=== PATIENT | female | born 1965 | race Caucasian/White ===

== ENCOUNTER 2024-06-06 10:45 | Emergency (ER) | payer BC ==
[2024-06-06] MEDS ORDERED: NA CHLORIDE 0.9% 1,000 ML ONE (11:05)
[2024-06-06] MEDS ORDERED: ONDANSETRON 4 MG/2 ML VIAL ONE (11:05)
[2024-06-06 11:09] LABS: Absolute Eosinophils 0.1 K/uL (0-0.5); Absolute Monocytes 0.7 K/uL (0.1-1.3); Absolute Neutrophil 6.9 K/uL (1.8-8.0); Basophils % 0.4 % (0-1.3); Eosinophils % 0.9 % (0-4.4); Hematocrit 46.3 % (36.0-45.0); Hemoglobin 15.2 g/dL (12.0-15.0); Lymphocytes % 20.5 % (15.3-44.8); MCH 29.2 pg (27.0-35.0); MCHC 32.8 g/dL (32.0-36.0); MCV 88.8 fL (80-100); MPV 8.8 fL (7.6-11.3); Neutrophils % 71.2 % (41.7-73.7); Platelets 207 thou/uL (152-406); RBC Red Blood Cell Count 5.22 M/uL (3.86-4.86); Red Cell Distribution Width 14.2 % (12.1-15.2)
[2024-06-06 11:15] LABS: PT Prothrombin Time 10.2 SECONDS (9.4-12.5); PTT, Activated Partial Thromb 34.4 SECONDS (24.3-36.9); Protime INR 0.91
[2024-06-06 11:28] LABS: Albumin 4.1 g/dL (3.4-5.0); Albumin/Globulin Ratio 1.2 (1.1-1.8); Anion Gap 8.9 mEq/L (5.0-15.0); Bilirubin Direct 0.2 mg/dL (0-0.2); Bilirubin Indirect, Calculated 0.6 mg/dL (0.2-0.8); Bilirubin Total 0.8 mg/dL (0.2-1.0); Globulin 3.5 g/dL (2.3-3.5); Magnesium 1.8 mg/dL (1.6-2.4); Potassium 3.9 mEq/L (3.5-5.1); Protein, Total 7.6 g/dL (6.4-8.2); Troponin High Sensitivity 15.3 pg/mL (<58.9)
[2024-06-06 11:32] LABS: Specific Gravity 1.009 (1.005-1.030); Sqamous Epithelial <5 /HPF (None Seen); Urine Bacteria None Seen /HPF (<20); Urine Bilirubin NEGATIVE (Negative); Urine Blood Negative (Negative); Urine Clarity Turbid (Clear); Urine Color Light-Yellow (Yellow); Urine Culture Reflex Order NOT NEEDED; Urine Glucose NEGATIVE (Negative); Urine Ketones NEGATIVE (Negative); Urine Microscopic Reflex YN ORDER UMIC; Urine Mucus Slight /HPF (None Seen); Urine Nitrite NEGATIVE (Negative); Urine Protein NEGATIVE (Negative); Urine RBC None Seen /HPF (None Seen); Urine Urobilinogen Normal (Normal); Urine WBC <5 /HPF (<5); Urine pH 5.5 (5.0-7.0)
[2024-06-06] MEDS ORDERED: MAGNES/ALUMIN/SIMET 30ML UCUP ONE (11:33)
[2024-06-06] MEDS ORDERED: PROMETHAZINE INJ 25 MG/ML AMP ONE (11:33)
[2024-06-06] MEDS ORDERED: LIDOCAINE VISCOUS 2% 10ML ORAL SOLN ONE (11:34)
--- NOTE | 2024-06-06 11:56 | RAD REPORT ---
EXAM DESCRIPTION: CT - Head Brain Wo Cont - 06/06/2024 11:49 am CLINICAL HISTORY: syncope vs seizure Headache, drowsiness, seizure COMPARISON: Head angio dated 06/06/2024 TECHNIQUE: All CT scans are performed using dose optimization technique as appropriate and may inclu de automated exposure control or mA/KV adjustment according to patient size. FINDINGS: No intracranial hemorrhage, hydrocephalus or extra-axial fluid collection.Mild frontal atr ophy noted.No areas of brain edema or evidence of midline shift. The paranasal sinuses and mastoids are clear. The calvarium is intact. IMPRESSION: No acute intracranial abnormality.
--- NOTE | 2024-06-06 12:01 | RAD REPORT ---
EXAM DESCRIPTION: CT - Head angio - 06/06/2024 11:49 am CLINICAL HISTORY: syncope vs seizure Headache, drowsiness COMPARISON: Head Brain Wo Cont dated 06/06/2024 TECHNIQUE: CT angiography of the head was performed with MIPs. All CT scans are performed using dose optimization technique as appropriate and may include automated exposure control or mA/KV adjustment according to patient size. FINDINGS: No evidence of large vessel occlusion. No evidence of aneurysm is detected. No flow-limiti ng stenosis or vascular malformation identified. Antegrade flow is seen in the vertebral arteries. The vertebral arteries are codominant. The visualized dural venous sinuses are patent. IMPRESSION: No significant flow abnormality is detected.
--- NOTE | 2024-06-06 12:06 | RAD REPORT ---
EXAM DESCRIPTION: CT - Neck Angio - 06/06/2024 11:49 am CLINICAL HISTORY: syncope vs seizure Headache, drowsiness COMPARISON: No comparisons TECHNIQUE: CT angiography of the neck vessels was performed with MIPs. All CT scans are performed using dose optimization technique as appropriate and may include automated exposure control or mA/KV adjustment according to patient size. FINDINGS: A left aortic arch is identified with bovine configuration of the great vessels. No significant flow abnormality is seen of the common carotid bilaterally. Minimal soft plaque right carotid bulb. No significant carotid stenosis seen bilaterally. Normal flow is seen within both vertebral arteries. IMPRESSION: No significant flow abnormality of the neck vessels is identified. NASCET criteria used. Mild 0-49% stenosis Moderate 50-69% stenosis Severe 70-99% stenosis
--- NOTE | 2024-06-06 12:07 | RAD REPORT ---
EXAM DESCRIPTION: RAD - Chest Single View - 06/06/2024 11:54 am CLINICAL HISTORY: syncope vs seizure Chest pain. COMPARISON: No comparisons FINDINGS: Portable technique limits examination quality. Mild subsegmental atelectasis is present in the right lung base with elevated right hemidiaphragm. No focal consolidation to indicate pneumonia. The heart is upper limit normal in size. No displaced fra ctures.
--- NOTE | 2024-06-06 13:51 | RAD REPORT ---
EXAM DESCRIPTION: USExtremity Venous Uni Ltd06/06/2024 1:31 pm CLINICAL HISTORY: Right leg pain COMPARISON: None. FINDINGS: Right common femoral, superficial femoral, greater saphenous, popliteal and right posterio r tibial veins are compressible and demonstrate augmentation. Doppler demonstrates good flow. Grayscale, color and spectral analysis performed on all vessels IMPRESSION: No evidence of deep venous thrombosis involving the right lower extremity.
--- NOTE | 2024-06-06 14:21 | EDPHYS ---
Physician Documentation [facility] Name: Holly Sandy Age: 59 yrs Sex: Female : 1965 Arrival Date: 06/06/2024 Time: 10:45 Bed 8 Private MD: ED Physician Jalil Whitt HPI: 06/06 12:18 This 59 yrs old Female presents to ER via EMS with complaints of Possible rn syncope/possible seizure. 12:18 The patient has experienced syncope. Onset: The symptoms/episode began/occurred just rn prior to arrival. Duration: This was a single episode. Associated injury: The patient did not suffer any apparent associated injury. Current symptoms: headache. The patient has not experienced similar symptoms in the past. Patient reports had just finished drinking 2 cups of coffee, was on the phone with her friend, does not recall what happened after that. Friend reported that she was not answering on the line when spoken to. Patient states unknown amount of time that she lost, but when ambulance or police arrived she was seen walking out of her bedroom or bathroom. No injury. Was seated when it happened. [place] lightheaded prior to event. No preceding chest pain or shortness of breath. No focal neurological deficits. Reports very mild headache and nausea. No history of seizures. No history of head injury.. Historical: - Allergies: 10:54 Sulfa (Sulfonamide Antibiotics); aa5 - Home Meds: 10:54 None [Active]; aa5 - PMHx: 10:54 None; aa5 - PSHx: 10:54 Breast reduction; aa5 - Immunization history:: Adult Immunizations unknown. - Infectious Disease History:: Denies. - Social history:: Smoking status: Patient denies any tobacco usage or history of. - Family history:: not pertinent. - Hospitalizations: : No recent hospitalization is reported. ROS: 12:18 Constitutional: Negative for fever, chills, and weight loss, Eyes: Negative for injury, rn pain, redness, and discharge, Neck: Negative for injury, pain, and swelling, Cardiovascular: Negative for chest pain, palpitations, and edema, Respiratory: Negative for shortness of breath, cough, wheezing, and pleuritic chest pain, Abdomen/GI: Negative for abdominal pain,vomiting, diarrhea, and constipation, Back: Negative for injury and pain, MS/Extremity: Negative for injury and deformity, Skin: Negative for injury, rash, and discoloration, Neuro: Positive for headache, negative for focal weakness or numbness Exam: 12:18 Constitutional: This is a well developed, well nourished patient who is awake, alert, rn and in no acute distress. Head/Face: Normocephalic, atraumatic. Eyes: Pupils equal round and reactive to light, extra-ocular motions intact. Neck: No meningismus Cardiovascular: Regular rate and rhythm. No pulse deficits. Respiratory: No increased work of breathing, no retractions or nasal flaring. Abdomen/GI: Soft, non-tender MS/ Extremity: Pulses equal, no cyanosis. Neuro: Awake and alert, GCS 15, oriented to person, place, time, and situation. Cranial nerves II-XII grossly intact. Motor strength 5/5 in all extremities. Sensory grossly intact. Cerebellar exam normal. 14:22 ECG was reviewed by the Attending Physician. rn Vital Signs: 10:45 BP 158 / 84; Pulse 98; Resp 18 S; Temp 97.8(TE); Pulse Ox 99% on R/A; aa5 11:00 BP 130 / 89; Pulse 102; Resp 16 S; Pulse Ox 100% on R/A; aa5 11:30 BP 142 / 85; Pulse 90; Resp 18 S; Pulse Ox 99% on R/A; aa5 12:30 BP 140 / 79; Pulse 88; Resp 16 S; Pulse Ox 99% on R/A; aa5 14:00 BP 138 / 82; Pulse 85; Resp 18 S; Pulse Ox 99% on R/A; aa5 MDM: 10:49 Patient medically screened. rn 14:19 Differential Diagnosis: cardiac arrhythmia, idiopathic syncope, seizure, vasovagal rn episode. Data reviewed: vital signs, nurses notes, lab test result(s), EKG, radiologic studies, CT scan, ultrasound, and as a result, I will discharge patient. Counseling: I had a detailed discussion with the patient and/or guardian regarding the historical points, exam findings, and any diagnostic results supporting the discharge/admit diagnosis, lab results, radiology results, the need for outpatient follow up, to return to the emergency department if symptoms worsen or persist or if there are any questions or concerns that arise at home. Response to treatment: the patient's symptoms have markedly improved after treatment, the patient's symptoms have resolved after treatment, the patient's condition has returned to base line, the patient is now symptom free, and as a result, I will discharge patient. Special discussion: I discussed with the patient/guardian in detail that at this point there is no indication for admission to the hospital. It is understood, however, that if the symptoms persist or worsen the patient needs to return immediately for re-evaluation. Based on the history and exam findings, there is no indication for further emergent testing or inpatient evaluation. I discussed with the patient/guardian the need to see the neurologist for further evaluation of the symptoms. I discussed with the patient/guardian the need to see the primary care provider for further evaluation of the symptoms. ED course: No acute findings and workup. CT head and CT angio head and neck without acute findings. Ultrasound right lower extremity negative for DVT. Labs unremarkable. ECG without acute ischemia or arrhythmia. Will discharge home with PCP and neuro follow-up as still unclear whether syncope versus seizure. Will not medicate at this time.. 06/06 10:49 Order name: Basic Metabolic Panel; Complete Time: :06/06 10:49 Order name: CBC with Diff; Complete Time: 11:15 06/06 10:49 Order name: Hepatic Function; Complete Time: 06/06 10:49 Order name: Magnesium; Complete Time: 06/06 10:49 Order name: Protime (+inr); Complete Time: 11:06/06 10:49 Order name: Ptt, Activated; Complete Time: :06/06 10:49 Order name: Troponin High Sensitivity; Complete Time: 11:06/06 10:49 Order name: Urinalysis w/ reflexes; Complete Time: 11:06/06 10:50 Order name: CT Head Brain wo Cont 06/06 10:50 Order name: Chest Single View XRAY 06/06 10:50 Order name: Neck Angio CT 06/06 11:07 Order name: Head angio EDAL 06/06 12:21 Order name: Extremity Venous Uni Ltd US 06/06 10:50 Order name: EKG; Complete Time: 10:50 06/06 10:50 Order name: Cardiac monitoring; Complete Time: 10:58 06/06 10:50 Order name: EKG - Nurse/Tech; Complete Time: 11:04 rn 06/06 10:50 Order name: IV Saline Lock; Complete Time: rn 06/06 10:50 Order name: Labs collected and sent; Complete Time: rn 06/06 10:50 Order name: NPO; Complete Time: 58 rn 06/06 10:50 Order name: O2 Per Protocol; Complete Time: rn 06/06 10:50 Order name: O2 Sat Monitoring; Complete Time: :58 rn EC:22 Rate is 90 beats/min. Rhythm is regular. QRS Roberta is Normal. CO interval is normal. QRS rn interval is normal. QT interval is normal. No Q waves. T waves are Normal. No ST changes noted. Clinical impression: NSR w/ Non-specific ST/T Changes. Interpreted by me. Reviewed by me. Administered Medications: 11:11 Drug: NS 0.9% IV 1000 ml IV at 1000 ml once Route: IV; Rate: 1000 ml; Site: right aa5 antecubital; 13:00 Follow up: IV Status: Completed infusion; IV Intake: 1000ml aa5 11:11 Drug: Ondansetron IVP 4 mg IVP once; over 2 minutes Route: IVP; Site: right antecubital;aa5 11:16 Follow up: Response: No adverse reaction aa5 11:35 Drug: Promethazine IVP 6.25 mg IVP once Route: IVP; Site: right antecubital; aa5 11:38 Follow up: Response: No adverse reaction aa5 12:29 Drug: GI Cocktail without - (Maalox PO 30 ml, Lidocaine Mucous Membrane 2 % 15 aa5 ml) PO once Route: PO; 13:00 Follow up: Response: No adverse reaction aa5 Disposition Summary: 06/06/24 14:21 Discharge Ordered Notes: Location: Home rn Problem: new rn Symptoms: have improved rn Condition: Stable rn Diagnosis - Syncope rn Followup: rn - With: Private Physician - When: As needed - Reason: Recheck today's complaints, Re-evaluation by your physician Discharge Instructions: - Discharge Summary Sheet rn - Syncope rn Forms: - Medication Reconciliation Form rn - Antibiotic journeyman apprentice electricians - Prescription Opioid Use rn - Patient Portal Instructions rn - Leadership Thank You Letter rn Prescriptions: - ondansetron 4 mg Oral Tablet,disintegrating - take 1 tablet ORAL route every 8 hours As needed; 12 tablet; Refills: 0, rn Product Selection Permitted Signatures: Dispatcher [employer] Jalil Croft MD MD rn Calderon, Audri, SOFÍA RN aa5
--- NOTE | 2024-06-06 14:21 | ER ---
Nurse's Notes [facility] Name: Holly Sandy Age: 59 yrs Sex: Female : 1965 Arrival Date: 06/06/2024 Time: 10:45 Bed 8 Private MD: Diagnosis: Syncope Presentation: 06/06 10:45 Chief complaint: EMS states: received 911 from pt's friend who was on the phone with aa5 her when she suddenly " friend stopped talking but could hear her breathing", upon scene arrival pt was awake but confused. Pt states "I just remember feeling dizzy and woke up to me walking out of my bedroom because the oracle r12 developer were there but I don't remember how I got to my bedroom". Pt also reports loss of urine. Currently c/o nausea. 10:45 Coronavirus screen: nausea. Ebola Screen: Patient denies travel to an Ebola-affected [facility] area in the 21 days before illness onset. Initial Sepsis Screen: Does the patient meet any 2 criteria? No. Patient's initial sepsis screen is negative. Does the patient have a suspected source of infection? No. Patient's initial sepsis screen is negative. Risk Assessment: Do you want to hurt yourself or someone else? Patient reports no desire to harm self or others. Onset of symptoms was June 06, 2024. 10:45 Method Of Arrival: EMS: [facility] aa5 10:45 Acuity: SOLITARIO 2 aa5 10:45 Care prior to arrival: Medication(s) given: zofran 4 mg, IV initiated. Glucose check: aa5 80. Historical: - Allergies: 10:54 Sulfa (Sulfonamide Antibiotics); aa5 - Home Meds: 10:54 None [Active]; aa5 - PMHx: 10:54 None; aa5 - PSHx: 10:54 Breast reduction; aa5 - Immunization history:: Adult Immunizations unknown. - Infectious Disease History:: Denies. - Social history:: Smoking status: Patient denies any tobacco usage or history of. - Family history:: not pertinent. - Hospitalizations: : No recent hospitalization is reported. Screenin:45 [facility] ED Fall Risk Assessment (Adult) History of falling in the last 3 months, aa5 including since admission No falls in past 3 months (0 pts) Confusion or Disorientation No (0 pts) Intoxicated or Sedated No (0 pts) Impaired Gait No (0 pts) Mobility Assist Device Used No (0 pt) Altered Elimination No (0 pt) Score/Fall Risk Level 0 - 2 = Low Risk Oriented to surroundings, Maintained a safe environment, Educated pt \\T\\ family on fall prevention, incl call for assistance when getting out of bed. Abuse screen: Denies threats or abuse. Nutritional screening: No deficits noted. Tuberculosis screening: No symptoms or risk factors identified. Assessment: 10:45 General: Appears uncomfortable, Behavior is calm, cooperative. Pain: Complains of pain aa5 in forehead and right leg Quality of pain is described as headache as aching and right leg as cramping. Neuro: Level of Consciousness is awake, alert, obeys commands, Oriented to person, place, time, situation, Taproom Attendant are equal bilaterally Moves all extremities. Speech is normal, Facial symmetry appears normal, Pupils are PERRLA. Cardiovascular: Heart tones S1 S2 present Rhythm is regular. Respiratory: Airway is patent Respiratory effort is even, unlabored, Respiratory pattern is regular, symmetrical. GI: Abdomen is round non-distended, Bowel sounds present X 4 quads. Abd is soft and non tender X 4 quads. Reports nausea, Patient currently denies vomiting. : Reports loss of urine, pt cleaned. EENT: No signs and/or symptoms were reported regarding the EENT system. Derm: Skin is pink, warm \\T\\ dry. Musculoskeletal: Range of motion: intact in all extremities. 11:30 Reassessment: Patient is alert, oriented x 3, equal unlabored respirations, skin aa5 warm/dry/pink. Patient states symptoms have not improved. Reports nausea has not improved, MD was notified. . 11:39 Reassessment: Pt to CT via stretcher . aa5 12:29 Reassessment: Patient is alert, oriented x 3, equal unlabored respirations, skin aa5 warm/dry/pink. Patient states feeling better. Patient states symptoms have improved. 13:00 Reassessment: Pt sleeping. . aa5 14:00 Reassessment: Patient states feeling better. Pt resting in bed, with family at bedside. aa5 . 15:30 Reassessment: Patient is alert, oriented x 3, equal unlabored respirations, skin aa5 warm/dry/pink. Vital Signs: 10:45 BP 158 / 84; Pulse 98; Resp 18 S; Temp 97.8(TE); Pulse Ox 99% on R/A; aa5 11:00 BP 130 / 89; Pulse 102; Resp 16 S; Pulse Ox 100% on R/A; aa5 11:30 BP 142 / 85; Pulse 90; Resp 18 S; Pulse Ox 99% on R/A; aa5 12:30 BP 140 / 79; Pulse 88; Resp 16 S; Pulse Ox 99% on R/A; aa5 14:00 BP 138 / 82; Pulse 85; Resp 18 S; Pulse Ox 99% on R/A; aa5 ED Course: 10:45 Arm band placed on Patient placed in an exam room, on a stretcher. aa5 10:45 Patient has correct armband on for positive identification. Placed in gown. Bed in low aa5 position. Call light in reach. Side rails up X2. Client placed on continuous cardiac and pulse oximetry monitoring. NIBP monitoring applied. radiation monitor on. Pulse ox on. NIBP on. 10:49 Patient arrived in ED. rn 10:49 Jalil Whitt MD is Attending Physician. rn 10:54 Salma Duarte, SOFÍA is Primary Nurse. aa5 10:57 Triage completed. aa5 11:02 Initial lab(s) drawn, by me, sent to lab. aa5 11:02 Maintain EMS IV. Dressing intact. Good blood return noted. Site clean \\T\\ dry. Gauge \\T\\ aa 5 site: 20G to R AC . Flushed with 10 mL NS. 11:16 Clean catch with use of bed blanco. bc6 11:17 Urine collected: clean catch specimen, EKG done, by ED staff, reviewed by Jalil dawson MD. 11:51 CT Head Brain wo Cont In Process Unspecified. EDMS 11:[address] In Process Unspecified. EDMS 11:51 Head angio In Process Unspecified. EDMS 11:56 Chest Single View XRAY In Process Unspecified. EDMS 13:28 Extremity Venous Uni Ltd US In Process Unspecified. EDMS 15:30 No provider procedures requiring assistance completed. IV discontinued, intact, aa5 bleeding controlled, No redness/swelling at site. Pressure dressing applied. Administered Medications: 11:11 Drug: NS 0.9% IV 1000 ml IV at 1000 ml once Route: IV; Rate: 1000 ml; Site: right aa5 antecubital; 13:00 Follow up: IV Status: Completed infusion; IV Intake: 1000ml aa5 11:11 Drug: Ondansetron IVP 4 mg IVP once; over 2 minutes Route: IVP; Site: right antecubital;aa5 11:16 Follow up: Response: No adverse reaction aa5 11:35 Drug: Promethazine IVP 6.25 mg IVP once Route: IVP; Site: right antecubital; aa5 11:38 Follow up: Response: No adverse reaction aa5 12:29 Drug: GI Cocktail without - (Maalox PO 30 ml, Lidocaine Mucous Membrane 2 % 15 aa5 ml) PO once Route: PO; 13:00 Follow up: Response: No adverse reaction aa5 Medication: 12:29 VIS not applicable for this client. aa5 Intake: 13:00 IV: 1000ml; Total: 1000ml. aa5 Outcome: 14:21 Discharge ordered by . rn 15:30 Discharged to home via wheelchair, with significant other, aa5 15:30 Condition: stable 15:30 Discharge instructions given to patient, significant other, Instructed on discharge aa5 instructions, follow up and referral plans. medication usage, Demonstrated understanding of instructions, follow-up care, medications, Prescriptions given X 1, 15:31 Patient left the ED. ll1 Signatures: Dispatcher [employer] EDMS Jalil Whitt MD MD rn Calderon, Audri, RN RN aa5 Ilan tS RN RN ll1 [place] Murcia 6 Corrections: (The following items were deleted from the chart) 16:46 15:30 Discharged to home ambulatory, aa5 aa5 16:46 15:30 Discharge instructions given to patient, Instructed on discharge instructions, aa5 follow up and referral plans. medication usage, Demonstrated understanding of instructions, follow-up care, medications, Prescriptions given X 3, aa5
[2024-06-06 15:39] VITALS: TEMP 97.8
[2024-06-06 15:41] VITALS: BP 142/85; O2SAT 99
--- NOTE | 2024-06-07 14:40 | EKG ---
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
== END 2024-06-06 15:31 | disposition home or self-care (01) ==
LOC: ER 10:45
DX: R55 Syncope and collapse (principal); R51.9 Headache, unspecified; R11.0 Nausea
CPT/HCPCS: 96361; 93005; 85025; 81001; 80048; 36415; 83735; 85610; 80076; 85730; 84484; 70450; 70496; 70498; 71045; 93971; 96375; 96374; 99285; Q9967; J2550; J2405; J7030